=== PATIENT | female | born 2005 | race Caucasian/White ===

== ENCOUNTER 2025-04-27 14:10 | Inpatient (IN) ==
[2025-04-27 14:55] LABS: Hematocrit (blood only) 37.5 % (37.0-47.0); Hemoglobin 12.6 g/dL (12.0-16.0); Immature Granulocytes # (auto) 0.02 K/uL (0.01-0.20); Immature Granulocytes % (auto) 0.3 %; Mean Corpuscular Hemoglobin 26.9 pg (25.0-34.0); Mean Corpuscular Volume 80.1 fL (80.0-100.0); Platelet Count 269 K/uL (130-400); RDW Standard Deviation 39.8 fL (36.4-46.3); Red Blood Count 4.68 M/uL (4.20-5.40); White Blood Count 6.71 K/ul (4.8-10.8)
[2025-04-27 15:11] LABS: Alanine Aminotransferase 19.0 U/L (7-52); Albumin Globulin Ratio 1.1 (0.9-2); Albumin Level 3.8 gm/dl (3.4-5.0); Alkaline Phosphatase 53.0 U/L (34-104); Anion Gap 8.0 (3-11); Bilirubin,Total 0.3 mg/dl (0.2-1.0); Blood Urea Nitrogen 11.0 mg/dl (6-23); Calcium 9.3 mg/dl (8.6-10.3); Carbon Dioxide 27.0 mmol/L (21-32); Chloride 100.0 mmol/L (98-107); Creatinine Clr Calc Pharmacy 140.8 ml/min; Globulin 3.6 gm/dl (2.5-4.0); Glucose 90.0 mg/dl (70-99(Fasting)); Potassium 3.6 mmol/L (3.5-5.1); Sodium 135.0 mmol/L (136-145); Total Protein 7.4 gm/dl (6.0-8.3)
--- NOTE | 2025-04-27 15:13 | Emergency Department Note ---
Impression & Plan Bilateral pneumonia, Adenovirus infection, Dyspnea, Tachycardia ED Provider Note CHIEF COMPLAINT: Cough, shortness of breath HISTORY OF PRESENT ILLNESS: This 19-year-old female patient presents to the emergency department via private vehicle for evaluation of cough and shortness of breath. The patient states she has been sick for quite some time. She states she was on a 50 mg prednisone taper that she only took up until day 6 or 7. She completed this last week, but only got to the 30 mg dose. The patient states that she was feeling better at that time from her upper respiratory symptoms, but on Friday evening, 4 days ago, she took a nap and when she woke up, she was feeling much worse. The patient states 2 days later, she went to urgent care. She notes she tested negative for strep, mono, influenza, and COVID-19. She states she had a chest x-ray and a nebulizer treatment at that time. She was told she does not have a pneumonia. She was started again on prednisone. She was given a dexamethasone shot and given a prescription for prednisone. She took 40 mg yesterday but has not taken her dose today. The patient does report persistent difficulty breathing. She has been using albuterol inhaler 2 puffs every 30 minutes to 1 hour throughout the day today. She states she did feel that the dexamethasone helped and she was feeling better yesterday, but her symptoms seem to return today. Last dose of albuterol was about 1 hour prior to arrival. Patient denies any fever. Her cough is nonproductive. Patient denies any abdominal pain, nausea, or vomiting. She does have a history of asthma and states she is not currently on any preventative therapies for her asthma. She does report fever on Friday night of 101.2 F and subjective elevated temperature with sweats last night. History provided by: Patient REVIEW OF SYSTEMS: A 10 system review of systems was performed with positives and pertinent negatives listed in the history of present illness. All other systems were reviewed and are negative. ALLERGIES: NKDA PHYSICAL EXAM: VITALS: Vitals are noted on the nurse's note and reviewed by myself. GENERAL: This is a 19 year old female, in no acute distress, nondiaphoretic, well-developed well-nourished. SKIN: The skin was without rashes, erythema, edema, or bruising. There is no tenting of the skin. Capillary refill less than 2 seconds. HEAD: Normocephalic atraumatic. EARS: External auditory canals clear, tympanic membranes pearly [place] without erythema or effusion bilaterally. No hemotympanum. Negative lux sign EYES: Pupils equal round and reactive to light and accommodation. Conjunctivae without injection, sclerae without icterus. Extraocular movements intact. NOSE: Patent, turbinates without inflammation or discharge. No sinus tenderness. MOUTH: Mucous membranes moist. Tonsils are not enlarged. Pharynx without erythema or exudate. Uvula midline. Airway patent. Tongue does not deviate. NECK: Supple without nuchal rigidity. No lymphadenopathy. Cervical spine is nontender. No JVD. HEART: Regular rate and rhythm without murmurs gallops or rubs. LUNGS: Clear to auscultation bilaterally without wheezes, rales or rhonchi. No retractions or accessory muscle use. ABDOMEN: Positive bowel sounds x 4. Soft, nontender, without masses or organomegaly. Solitario sign negative. No guarding or rebound tenderness. MUSCULOSKELETAL: No muscle atrophy, erythema, or edema noted. Full range of motion without joint tenderness in all extremities. No tenderness to palpation. Normal gait. Strength 5/5 throughout. NEURO: Patient was alert and oriented to person place and time. Normal sensation to light and sharp touch. Deep tendon reflexes 2+ throughout. No focal neurological deficits. An order was placed for continuous manager cardiac. The monitor showed a sinus tachycardia at a ventricular rate of 135 bpm, per my interpretation. EKG was reviewed by myself and found to be sinus tachycardia at a rate of 127 beats per minute and per my interpretation reveals no ST elevation or depression. No T wave inversion. No prior EKG available for comparison. Imaging as interpreted by myself and the radiologist revealed Extensive left lower lobe pneumonia and suspected mild right lower lobe pneumonia with small left pleural effusion, with radiologist interpretation as above. I agree with the radiologist's findings as based upon my independent interpretation. EMERGENCY DEPARTMENT COURSE: The patient was evaluated as above. The patient presents to the emergency department for cough and shortness of breath. She has intermittently been sick for several weeks. Her most recent illness started about 4 days ago. Patient was started on steroids due to the wheezing and cough and has been using albuterol about every 30 minutes throughout the day today. Patient has only taken 1 dose of steroids yesterday and did not take a dose today. IV access was obtained, labs were drawn. Patient was hydrated with IV fluids. She was medicated with Solu-Medrol and DuoNeb treatment. Labs reviewed. Per my interpretation, no leukocytosis or anemia. No thrombocytopenia. Renal, hepatic function and electrolytes without significant abnormality. hCG negative. High-sensitivity troponin elevated at 17.8. Delta troponin completed about 2 hours later is 12.9. Respiratory [employer] testing is positive for adenovirus. Chest x-ray was completed and concerning for a left lower lobe pneumonia. Given the patient's persistent tachycardia, positive troponin, as well as her shortness of breath, we did elect to perform CT angiogram to evaluate for possible PE. This was reviewed by myself and radiologist and concerning for an extensive left-sided pneumonia and mild right sided pneumonia. Patient was started on IV ceftriaxone. The patient did request something for "diffuse body pain". The patient was given IV acetaminophen. She was hydrated with IV fluids. Patient will be admitted to the [facility] service due to the bilateral pneumonia, persistent tachycardia, and borderline O2 saturation. Please see hospitalist dictation regarding ongoing management of this patient. Case was discussed with the attending physician. This visit is during a period of high volume and high acuity in the emergency department. I attest that I have personally reviewed the patient medication list. I attest that I have reviewed the patient's blood pressure and it was found to be normal. GCS: 15 In the evaluation and treatment of this patient the following differential diagnoses were entertained: Reactive airway disease, pneumonia, pneumothorax, COPD, CHF, infections, cardiac ischemia, pulmonary embolism, musculoskeletal, gastrointestinal, as well as other pathologies. The chart was completed utilizing [employer] Speech voice recognition software. Grammatical errors, random word insertions, pronoun errors, and incomplete sentences are an occasional consequence of this system due to software limitations, ambient noise, and hardware issues. Any formal questions or concerns about the content, text, or information contained within the body of this dictation should be directly addressed to the provider for clarification. Past Med/Surg History Problem List Tachycardia (Acute) Dyspnea (Acute) Adenovirus infection (Acute) Bilateral pneumonia (Acute) Medical History No pertinent past medical history Social History Smoking Status: Never smoker Preferred Language: Malawian Feels Safe at Home: Yes Allergies Allergies Allergy/AdvReac Type Severity Reaction Status Date / Time No Known Allergies Allergy Verified 04/27/25 17:34 Home Meds Home Medications Medication Instructions Recorded Confirmed cyproheptadine 4 mg tablet 4 mg PO DAILY 04/27/25 04/27/25 escitalopram oxalate 20 mg tablet 20 mg PO DAILY 04/27/25 04/27/25 (Lexapro) norgestrel 0.3 mg-ethinyl 1 tab PO DAILY 04/27/25 04/27/25 estradiol 30 mcg tablet ([place] (28)) Results & Data (ED) Vital Signs Vital Signs - 24 hr 04/27/25 14:12 04/27/25 16:06 04/27/25 16:06 Temperature 37.0 C Temperature Source Oral Pulse Rate 140 H Pulse Rate [Apical] 133 H Respiratory Rate 18 20 Respiratory Effort / Characteristics Non-Labored Spontaneous Blood Pressure 144/87 H Blood Pressure [Right Arm] 136/73 Blood Pressure Mean 106 Blood Pressure Mean [Right Arm] 94 Pulse Oximetry 94 96 96 Oxygen Delivery Method Room Air Room Air Room Air Sepsis New/Unexplained Change in Mental Status No Sepsis Action Taken by Nursing No Action Required 04/27/25 16:06 04/27/25 16:27 Temperature Temperature Source Pulse Rate 133 H 124 H Pulse Rate [Apical] Respiratory Rate 20 Respiratory Effort / Characteristics Blood Pressure Blood Pressure [Right Arm] Blood Pressure Mean Blood Pressure Mean [Right Arm] Pulse Oximetry 96 Oxygen Delivery Method Room Air Sepsis New/Unexplained Change in Mental Status Sepsis Action Taken by Nursing Laboratory Data 04/27/25 14:33 04/27/25 14:33 Lab Results 04/27/25 04/27/25 04/27/25 Range/Units 14:17 14:33 16:52 WBC 6.71 (4.8-10.8) K/ul RBC 4.68 (4.20-5.40) M/uL Hgb 12.6 (12.0-16.0) g/dL Hct 37.5 (37.0-47.0) % MCV 80.1 (80.0-100.0) fL MCH 26.9 (25.0-34.0) pg MCHC 33.6 (32.0-36.0) g/dL RDW Std Deviation 39.8 (36.4-46.3) fL RDW Coeff of Jose G 13.8 (11.5-14.5) % Plt Count 269 (130-400) K/uL MPV 9.6 (9.4-12.4) fL Immature Gran % (Auto) 0.3 % Neut % (Auto) 75.1 % Lymph % (Auto) 14.3 % [place] % (Auto) 10.3 % Eos % (Auto) 0.0 % Baso % (Auto) 0.0 % Neut # (Auto) 5.04 (1.40-6.50) K/uL Lymph # (Auto) 0.96 L (1.20-3.40) K/uL [place] # (Auto) 0.69 H (0.11-0.59) K/uL Eos # (Auto) 0.00 (0.00-0.50) K/uL Baso # (Auto) 0.00 (0.00-0.20) K/uL Immature Gran # (Auto) 0.02 (0.01-0.20) K/uL PT 10.8 (9.0-12.0) Seconds INR 1.0 (0.9-1.1) APTT 28 (21-31) Seconds PTT Ratio 1.0 Sodium 135 L (136-145) mmol/L Potassium 3.6 (3.5-5.1) mmol/L Chloride 100 (98-107) mmol/L Carbon Dioxide 27 (21-32) mmol/L Anion Gap 8 (3-11) BUN 11 (6-23) mg/dl Creatinine 0.74 (0.6-1.2) mg/dl Est Cr Clr Drug Dosing 140.8 ml/min eGFR 118.71 BUN/Creatinine Ratio 14.9 (10-20) Glucose 90 (70-99(Fasting)) mg/dl Calcium 9.3 (8.6-10.3) mg/dl Total Bilirubin 0.3 (0.2-1.0) mg/dl AST 19 (13-39) U/L ALT 19 (7-52) U/L Alkaline Phosphatase 53 (34-104) U/L Troponin I High Sens 17.8 H 12.9 D (0-14) pg/ml Total Protein 7.4 (6.0-8.3) gm/dl Albumin 3.8 (3.4-5.0) gm/dl Globulin 3.6 (2.5-4.0) gm/dl Albumin/Globulin Ratio 1.1 (0.9-2) HCG, Qual Negative (Negative) Adenovirus (PCR) DETECTED A (NotDetected) B. pertussis DNA (PCR) Not Detected (NotDetected) B.parapertussis DNA PCR Not Detected (NotDetected) C. pneumoniae DNA (PCR) Not Detected (NotDetected) Coronavirus OC43 (PCR) Not Detected (NotDetected) Coronavirus HKU1 (PCR) Not Detected (NotDetected) Coronavirus 229E (PCR) Not Detected (NotDetected) SARS-CoV-2 (PCR) Not Detected (NotDetected) Coronavirus NL63 (PCR) Not Detected (NotDetected) Human Metapneumovir PCR Not Detected (NotDetected) Influenza Type A (PCR) Not Detected (NotDetected) Influenza Type B (PCR) Not Detected (NotDetected) M. pneumoniae (PCR) Not Detected (NotDetected) Parainfluenza 1 (PCR) Not Detected (NotDetected) Parainfluenza 2 (PCR) Not Detected (NotDetected) Parainfluenza 3 (PCR) Not Detected (NotDetected) Parainfluenza 4 (PCR) Not Detected (NotDetected) RSV (PCR) Not Detected (NotDetected) Entero/Rhino (PCR) Not Detected (NotDetected) Administered Medications Albuterol (Albut/Ipratrop 3mg/0.5mg Neb 3 Ml Vial) 3 ml NEB Q6R ROSA; Protocol Stop: 05/27/25 20:53 Last Admin: 04/27/25 21:31 Dose: 3 ml Documented By: TMP Cyproheptadine HCl (Cyproheptadine Hcl 4 Mg Tab) 4 mg PO HS ROSA Stop: 05/27/25 20:59 Last Admin: 04/27/25 21:42 Dose: 4 mg Documented By: SMD Escitalopram Oxalate (Escitalopram Oxalate 20 Mg Tab) 20 mg PO HS ROSA Stop: 05/27/25 20:59 Last Admin: 04/27/25 21:42 Dose: 20 mg Documented By: LORNE Guaifenesin (Guaifenesin 600 Mg Tabcr) 1,200 mg PO Q12 ROSA Stop: 05/27/25 20:59 Last Admin: 04/27/25 21:42 Dose: 1,200 mg Documented By: LORNE Discontinued Medications Albuterol (Albut/Ipratrop 3mg/0.5mg Neb 3 Ml Vial) 3 ml NEB NOW STA; Protocol Stop: 04/27/25 15:19 Last Admin: 04/27/25 15:37 Dose: 3 ml Documented By: ROSE Azithromycin (Azithromycin 250 Mg Tab) 500 mg PO NOW STA Stop: 04/27/25 18:01 Last Admin: 04/27/25 18:38 Dose: 500 mg Documented By: VIKTORIA Ceftriaxone Sodium (Rocephin) 2,000 mg in 50 mls @ 100 mls/hr IV NOW STA Stop: 04/27/25 17:21 Last Infusion: 04/27/25 17:44 Dose: Infused Documented By: Admin: 04/27/25 17:02 Dose: 100 mls/hr Documented By: BOZENA Sodium Chloride (Nss) 1,000 mls @ 999 mls/hr IV .Q1H1M ONE Stop: 04/27/25 17:52 Last Infusion: 04/27/25 18:40 Dose: Infused Documented By: Admin: 04/27/25 17:01 Dose: 999 mls/hr Documented By: BOZENA Acetaminophen (Ofirmev) 1,000 mg in 100 mls @ 400 mls/hr IV NOW STA Stop: 04/27/25 17:07 Last Infusion: 04/27/25 18:39 Dose: Infused Documented By: Admin: 04/27/25 16:58 Dose: 400 mls/hr Documented By: BOZENA Ioversol (Optiray 320 125ml) 115 ml IV ONCE ONE Stop: 04/27/25 15:58 Last Admin: 04/27/25 15:57 Dose: 115 ml Documented By: ZOE Methylprednisolone (Methylprednisolone 125 Mg/2 Ml Vial) 125 mg IV NOW STA Stop: 04/27/25 15:19 Last Admin: 04/27/25 15:37 Dose: 125 mg Documented By: ROSE Imaging Data Radiologist's Impression: Chest X-Ray 04/27/25 14:15 XR chest 1V not portable HISTORY: 19 years-old Female Chest pain, nonspecific COMPARISON: None TECHNIQUE: PA view of the chest FINDINGS: Cardiomediastinal and hilar silhouettes are within normal limits. No pneumothorax or definite pleural effusion. The right lung is clear. Left basilar consolidation. Bones appear normal. IMPRESSION: Left basilar consolidation is suspicious for pneumonia. ACT 112: Negative or not required by law. The above report was generated using voice recognition software. It may contain grammatical, syntax or spelling errors. Electronically signed by: Cliff Suárez M.D. 04/27/2025 3:23 PM Chest CTA 04/27/25 15:20 Clinical history: Dyspnea and tachycardia Technique: Axial computed tomography images were obtained of the chest after the administration of intravenous contrast according to the CT angiogram protocol Findings: There is no definite sign of pulmonary embolism. There is extensive alveolar consolidation in the left lower lobe. There are less severe nodular alveolar opacities in the right lower lobe, likely due to pneumonia There is a small left pleural effusion. There is no right pleural effusion or pneumothorax. There is no sign of pulmonary fibrosis or other diffuse interstitial process. No endobronchial lesion is seen There is no mediastinal, hilar, or axillary adenopathy. The thoracic aorta appears unremarkable with no sign of aneurysm or dissection. There is no pericardial effusion The spleen is mildly enlarged measuring 13.5 cm. No fracture is seen. No focal osseous lesion is evident Impression: 1. No definite sign of pulmonary embolism 2. Extensive left lower lobe pneumonia and suspected mild right lower lobe pneumonia 3. Small left pleural effusion 4. Mild splenomegaly Electronically signed by Florian Alas 04-27-2025 4:32 PM Discharge Plan Visit Data Chief Complaint: Shortness of Breath/Dyspnea Stated Complaint: HARD TIME BREATHING ED Provider: [facility] Midlevel Provider: Mariela Raza Discharge Problem: Bilateral pneumonia, Adenovirus infection, Dyspnea, Tachycardia Patient Disposition: Admitted As Inpatient Condition: Good Discharge Instructions Interventions: ED Discharge Assessment Last Done: 04/27/25 20:33
--- NOTE | 2025-04-27 15:24 | XRay Report ---
XR chest 1V not portable HISTORY: 19 years-old Female Chest pain, nonspecific COMPARISON: None TECHNIQUE: PA view of the chest FINDINGS: Cardiomediastinal and hilar silhouettes are within normal limits. No pneumothorax or definite pleural effusion. The right lung is clear. Left basilar consolidation. Bones appear normal. IMPRESSION: Left basilar consolidation is suspicious for pneumonia. ACT 112: Negative or not required by law. The above report was generated using voice recognition software. It may contain grammatical, syntax o r spelling errors. Electronically signed by: Cliff Suárez M.D. 04/27/2025 3:23 PM
[2025-04-27 15:29] LABS: INR 1.0 (0.9-1.1); Partial Thromboplastin Time 28 Seconds (21-31); Prothrombin Time 10.8 Seconds (9.0-12.0)
[2025-04-27 15:36] LABS: Chlamydia pneumoniae PCR Not Detected (NotDetected); Coronavirus 229E PCR Not Detected (NotDetected); Coronavirus CoV-2 (COVID19)PCR Not Detected (NotDetected); Coronavirus HKU1 PCR Not Detected (NotDetected); Coronavirus NL63 PCR Not Detected (NotDetected); Coronavirus OC43PCR Not Detected (NotDetected); Human Metapneumovirus PCR Not Detected (NotDetected); Parainfluenza Virus 1 PCR Not Detected (NotDetected); Parainfluenza Virus 2 PCR Not Detected (NotDetected); Parainfluenza Virus 3 PCR Not Detected (NotDetected); Parainfluenza Virus 4 PCR Not Detected (NotDetected); Respiratory Syncytial VirusPCR Not Detected (NotDetected); Rhinovirus/Enterovirus PCR Not Detected (NotDetected)
[2025-04-27] MEDS: ALBUT/IPRATROP 3MG/0.5MG NEB 3 ML VIAL NEB STA (15:37)
[2025-04-27] MEDS: OPTIRAY 320 125ml IV ONE (15:57)
[2025-04-27 16:16] LABS: Pregnancy Test, Serum Negative (Negative)
--- NOTE | 2025-04-27 16:32 | CT Scan Report ---
Clinical history: Dyspnea and tachycardia Technique: Axial computed tomography images were obtained of the chest after the administration of intravenous contrast according to the CT angiogram protocol Findings: There is no definite sign of pulmonary embolism. There is extensive alveolar consolidation in the left lower lobe. There are less severe nodular alveolar opacities in the right lower lobe, likely due to pneumonia There is a small left pleural effusion. There is no right pleural effusion or pneumothorax. There is no sign of pulmonary fibrosis or other diffuse interstitial process. No endobronchial lesion is seen There is no mediastinal, hilar, or axillary adenopathy. The thoracic aorta appears unremarkable with no sign of aneurysm or dissection. There is no pericardial effusion The spleen is mildly enlarged measuring 13.5 cm. No fracture is seen. No focal osseous lesion is evident Impression: 1. No definite sign of pulmonary embolism 2. Extensive left lower lobe pneumonia and suspected mild right lower lobe pneumonia 3. Small left pleural effusion 4. Mild splenomegaly Electronically signed by Florian Alas 04-27-2025 4:32 PM
[2025-04-27] MEDS: ACETAMINOPHEN 1,000 MG/100 ML VIAL IV STA (16:58)
[2025-04-27] MEDS: SODIUM CHLORIDE 0.9% 1,000 ML IV ONE (17:01)
[2025-04-27] MEDS: cefTRIAXone SODIUM 2,000 MG/50 ML BAG IV STA (17:02)
--- NOTE | 2025-04-27 17:44 | History & Physical Report ---
Date of Service April 27, 2025 Assessment & Plan (1) Adenovirus infection: (2) Bilateral pneumonia: Plan 19 year old female presents to the ER with shortness of breath and fever #Community acquired pneumonia Despite lack of WBC she has significant area of consolidation on CT chest suggestive of bacterial process although may not yet be reflective in her lab tests Does not meet sepsis criteria but having significant tachycardia and generalized fatigue with bilateral (although mostly LLL) pneumonia therefore recommend admission Ceftriaxone + azithromycin Incentive spirometry, flutter valve Guaifenesin 1200mg PO BID #Asthma exacerbation Wheezing improved after duoneb per ER provider, patient also reports significant improvement after nebulizer therefore will continue this along with a short steroid course Duonebs q6hwa Solu-Medrol given in ER, continue prednisone 40mg PO daily VTE Prophylaxis - low risk, encourage ambulation Disposition - admit to med/surg, possibly home tomorrow if doing well, no need to repeat labs Admission and Anticipated Discharge Date Admission Date: April 27, 2025 History of Present Illness Chief Complaint: Shortness of breath, fever, Primary Care Provider: [facility] Mariel Goldberg is a 19 year old female who presents to the ER with shortness of breath and cough. She reports symptoms started 4 days ago on Friday with dry cough, headache and fever of 101.5 degrees Fahrenheit. 2 days ago on Friday she went to an urgent care and got a shot of steroid and started on prednisone. She has mild intermittent asthma but reports being so short of breath she has struggled to use her albuterol inhaler to get it into her lungs with this illness. She noted significant relief with her shortness of breath with duoneb given in the ER today. She denies any chest pain. No history of recurrent infections. Her asthma is usually well controlled without the need for maintenance inhalers. She does not smoke. Allergies Allergy/AdvReac Type Severity Reaction Status Date / Time No Known Allergies Allergy Verified 04/27/25 17:34 Home Medications Medication Instructions Recorded Confirmed Type cyproheptadine 4 mg tablet 4 mg PO DAILY 04/27/25 04/27/25 History escitalopram oxalate 20 mg tablet 20 mg PO DAILY 04/27/25 04/27/25 History (Lexapro) norgestrel 0.3 mg-ethinyl 1 tab PO DAILY 04/27/25 04/27/25 History estradiol 30 mcg tablet ([place] (28)) Past Med/Surg History Problem List (Updated 04/27/25 @ 19:03 by Mariela Raza PA-C) Tachycardia (Acute) Dyspnea (Acute) Adenovirus infection (Acute) Bilateral pneumonia (Acute) Medical History No pertinent past medical history Social History Smoking Status: Never smoker Preferred Language: Maltese Feels Safe at Home: Yes Review of Systems Review of Systems: All systems reviewed & are unremarkable except as noted in HPI & below Physical Exam Constitutional: WD/WN, vitals as above ENMT: external ear and nose normal, oropharynx normal Respiratory: normal respiratory effort; no respiratory distress Auscultation: + crackles (left posterior base); no diminished lung sounds, no rales, no rhonchi and no wheezes Cardiovascular: Rate/Rhythm: regular rhythm and + tachycardic Heart Sounds: no murmur Extremities: no calf tenderness and no pedal edema Gastrointestinal (Abdomen): normal bowel sounds, soft, nontender, no hepatosplenomegaly Skin: no rashes, warm and dry Neurologic: moves all extremities and awake; not confused Psychiatric: A+Ox3, euthymic affect Results & Data Results & Data Vital Signs (Past 12 Hours) Vital Signs Temp Pulse Pulse Resp BP BP Pulse Ox 04/27/25 16:27 124 H 04/27/25 16:06 133 H 20 96 04/27/25 16:06 133 H 20 136/73 96 04/27/25 16:06 96 04/27/25 14:12 37.0 C 140 H 18 144/87 H 94 O2 Del Method 04/27/25 16:27 04/27/25 16:06 Room Air 04/27/25 16:06 Room Air 04/27/25 16:06 Room Air 04/27/25 14:12 Room Air Laboratory Results Abnormal lab results 04/27/25 04/27/25 Range/Units 14:17 14:33 Lymph # (Auto) 0.96 L (1.20-3.40) K/uL [place] # (Auto) 0.69 H (0.11-0.59) K/uL Sodium 135 L (136-145) mmol/L Troponin I High Sens 17.8 H (0-14) pg/ml Adenovirus (PCR) DETECTED A (NotDetected) Diagnostic Findings XR chest 1V not portable HISTORY: 19 years-old Female Chest pain, nonspecific COMPARISON: None TECHNIQUE: PA view of the chest FINDINGS: Cardiomediastinal and hilar silhouettes are within normal limits. No pneumothorax or definite pleural effusion. The right lung is clear. Left basilar consolidation. Bones appear normal. IMPRESSION: Left basilar consolidation is suspicious for pneumonia. CT Chest pulmonary angiogram Clinical history: Dyspnea and tachycardia Technique: Axial computed tomography images were obtained of the chest after the administration of intravenous contrast according to the CT angiogram protocol Findings: There is no definite sign of pulmonary embolism. There is extensive alveolar consolidation in the left lower lobe. There are less severe nodular alveolar opacities in the right lower lobe, likely due to pneumonia There is a small left pleural effusion. There is no right pleural effusion or pneumothorax. There is no sign of pulmonary fibrosis or other diffuse interstitial process. No endobronchial lesion is seen There is no mediastinal, hilar, or axillary adenopathy. The thoracic aorta appears unremarkable with no sign of aneurysm or dissection. There is no pericardial effusion The spleen is mildly enlarged measuring 13.5 cm. No fracture is seen. No focal osseous lesion is evident Impression: 1. No definite sign of pulmonary embolism 2. Extensive left lower lobe pneumonia and suspected mild right lower lobe pneumonia 3. Small left pleural effusion 4. Mild splenomegaly Medications Administered ER Medications Given: Duoneb 3ml NEB Solu-medrol 125mg IV Ceftriaxone 2000mg IV Normal saline 1000ml bolus Acetaminophen 1000mg IV ECG Rate (beats per minute): 127 Rhythm: sinus tachycardia Findings: no acute ischemic change Comparison ECG Date: no prior available Code Status & VTE Plan Code Status Full VTE Prophylaxis Plan VTE Prophylaxis will be ordered: No PG Care Time/CCT Total # of Minutes Spent Total Time Spent with Patient: Total time spent is greater than 50% in coordination of care (as documented) at patient's floor/unit and/or counseling patient: Coding Level of Care Code 26248 INT INP/OBS CARE 3/75MIN Diagnoses Adenovirus infection B34.0 Bilateral pneumonia J18.9
[2025-04-27] MEDS: AZITHROMYCIN 250 MG TAB PO STA (18:38)
[2025-04-27] MEDS ORDERED: ACETAMINOPHEN 325 MG TAB PO PRN (20:54)
[2025-04-27] MEDS: ALBUT/IPRATROP 3MG/0.5MG NEB 3 ML VIAL NEB SCH (21:31)
[2025-04-27] MEDS: ESCITALOPRAM OXALATE 20 MG TAB PO SCH (21:42)
[2025-04-27] MEDS: guaiFENesin 600 MG TABCR PO SCH (21:42)
[2025-04-27] MEDS: CYPROHEPTADINE HCL 4 MG TAB PO SCH (21:42)
[2025-04-28] MEDS: ONDANSETRON INJ 2 MG/ML 2 ML VIAL IV PRN (04:22)
[2025-04-28] MEDS: ONDANSETRON INJ 2 MG/ML 2 ML VIAL ONE (04:25)
[2025-04-28] MEDS: predniSONE 20 MG TAB PO SCH (08:01)
[2025-04-28] MEDS: AZITHROMYCIN 250 MG TAB PO SCH (08:02)
[2025-04-28] MEDS: AMOXICILLIN/CLAVULANATE 875 MG TAB PO ONE (10:30)
--- NOTE | 2025-04-28 11:21 | Discharge Summary ---
Discharge Summary Date of Service April 28, 2025 Principal Dx & Hospital Course #1 = Principal Diagnosis (1) Adenovirus infection: (2) Bilateral pneumonia: Tahira Goldberg is a 19 year old female admitted to [facility] from April 27 - 2024 due to shortness of breath. She was diagnosed with asthma exacerbation and pneumonia with large area of consolidation on left lower lobe. Air entry significantly improved overnight. She never required any oxygen. This was treated with nebulizers, Solu-medrol, ceftriaxone and azithromycin. She will be discharged with additional 3 days of prednisone. She should continue to take albuterol 2 puffs every 6 hours for the next few days or up to every 4 hours as needed for shortness of breath or wheezing. She will continue on Augmentin and azithromycin on discharge. Consider follow up pulmonary function testing once recovered from this illness. Notes For Next Care Provider Consider follow up pulmonary function testing once recovered from this illness Medication Changes From Visit Augmentin + azithromycin for pneumonia Prednisone + albuterol for asthma exacerbation Ondansetron for nausea Admission HPI Per Admitting Provider Mariel Goldberg is a 19 year old female who presents to the ER with shortness of breath and cough. She reports symptoms started 4 days ago on Friday with dry cough, headache and fever of 101.5 degrees Fahrenheit. 2 days ago on Friday she went to an urgent care and got a shot of steroid and started on prednisone. She has mild intermittent asthma but reports being so short of breath she has struggled to use her albuterol inhaler to get it into her lungs with this illness. She noted significant relief with her shortness of breath with duoneb given in the ER today. She denies any chest pain. No history of recurrent infections. Her asthma is usually well controlled without the need for maintenance inhalers. She does not smoke. Discharge Exam Respiratory normal respiratory effort; no respiratory distress Auscultation: + crackles (left posterior); no diminished lung sounds (significantly improved from admission) Cardiovascular RRR, no murmur, no edema Discharge Plan Discharge Items Patient Disposition: Home - Self-Care Reason For Visit: PNEUMONIA Discharge Diagnosis: Pneumonia Asthma Exacerbation Condition on Discharge: Good Activity: As commented below Activity Comment: Gradually increase as tolerated Non-emergency contact: Primary Care Provider Call non-emergency contact if: you have any medication questions and your symptoms worsen Follow-up/Referrals: [facility] [Primary Care Provider] - Diet: Regular Addtl Attending Provider Instructions: You were admitted to [facility] from April 27 - 2024 due to shortness of breath. You were diagnosed with asthma exacerbation and pneumonia. This was treated with nebulizers, steroids and antibiotics. You will be discharged with additional 3 days of prednisone steroids. Please continue to take your albuterol 2 puffs every 6 hours for the next few days or up to every 4 hours as needed for shortness of breath or wheezing. Please finish antibiotic course as prescribed. Consider follow up lung function testing when you are feeling improved as you may benefit from maintenance inhalers for your asthma. Kind regards, Dr Kai Hardy Pending Studies at Discharge: No Stand-Alone Forms: [facility], Work/School Release, Smoking Cessation Medications and DC Order Prescriptions: New azithromycin 250 mg Tablet 250 mg PO QAM Qty: 4 0RF prednisone 20 mg Tablet 40 mg PO QAM Qty: 3 0RF amoxicillin-pot clavulanate 875-125 mg tablet 1 tab PO Q12H 7 Days Qty: 14 0RF albuterol sulfate 90 mcg/actuation HFA aerosol inhaler 2 inh inhalation Q4H PRN (Reason: shortness of breath or wheezing) Qty: 8.5 0RF ondansetron 4 mg tablet,disintegrating 4 mg PO Q6H PRN (Reason: nausea and vomiting) Qty: 10 0RF Continued Cryselle (28) 0.3-30 mg-mcg Tablet 1 tab PO DAILY Changed cyproheptadine 4 mg Tablet 4 mg PO HS Qty: 0 0RF escitalopram oxalate [Lexapro] 20 mg Tablet 20 mg PO HS Qty: 0 0RF Discharge Orders: Discharge Order (Routine); Ordered 04/28/25 Ordered By: Kai Hardy Admission Data Admit Date/Time: 04/27/25 17:59 Attending Provider: Kai Hardy Admit Provider: Kai Hardy Primary Care Provider: [facility] Other Providers: Kai Hardy Other Interventions: Discharge Summary Assessment (RN) Last Done: 04/28/25 11:25 Hospital Stay Data Consultations 04/27/25 17:43 ED Decision to Admit Stat Diagnostic Imagining Performed 04/27/25 15:20 CT angio chest PE protocol Stat Pending Results Patient Have Any Pending Studies at Discharge: No Discharge Instructions Given to Patient (Per Discharging Provider) You were admitted to [facility] from April 27 - 2024 due to shortness of breath. You were diagnosed with asthma exacerbation and pneumonia. This was treated with nebulizers, steroids and antibiotics. You will be discharged with additional 3 days of prednisone steroids. Please continue to take your albuterol 2 puffs every 6 hours for the next few days or up to every 4 hours as needed for shortness of breath or wheezing. Please finish antibiotic course as prescribed. Consider follow up lung function testing when you are feeling improved as you may benefit from maintenance inhalers for your asthma. Kind regards, Dr Kai Hardy Total Time Total Time Spent Total Time Spent (In Minutes): 40 Total Time Includes: Examination of the Patient, Discharge Planning, Medication Reconciliation and Communication With Other Providers (pharmacy) Coding Level of Care Code 57898 INP/OBS DISCH >30 MIN Diagnoses Adenovirus infection B34.0 Bilateral pneumonia J18.9
[2025-04-28] MEDS ORDERED: cefTRIAXone SODIUM 2,000 MG/50 ML BAG IV SCH (17:00)
--- NOTE | 2025-04-29 09:25 | Electrocardiogram Report ---
Test Reason : Blood Pressure : */* mmHG Vent. Rate : 127 BPM Atrial Rate : 127 BPM P-R Int : 146 ms QRS Dur : 76 ms QT Int : 308 ms P-R-T Axes : 38 12 3 degrees QTcB Int : 447 ms Sinus tachycardia Poor R-wave progression Otherwise normal ECG No previous ECGs available Confirmed by Humberto Perez ([id number]) on 04/29/2025 9:25:29 AM Referred By: Confirmed By: Humberto Perez
== END 2025-04-28 12:19 | disposition home or self-care (01) | DRG 194 ==
LOC: SUATTDRO → ED 14:10 → 2W 17:59